=== PATIENT | male | born 1975 | race African-American/Black ===

== ENCOUNTER 2016-07-22 15:19 | Emergency (ER) | payer OTHER ==
--- NOTE | ~2016-07-22 | EKG ---
PATIENT: DIOGENES MICHAELS UNIT #: [id number] Ventricular Rate: 55 BPM Atrial Rate: 55 BPM P-R Interval: 136 ms QRS Duration: 92 ms Q-T Interval: 424 ms QTC Calculation(Bezet): 405 ms P [place]: -7 degrees Calculated R [place]: -4 degrees Calculated T [place]: 150 degrees Diagnosis Line: Sinus bradycardia Diagnosis Line: Minimal voltage criteria for LVH, may be normal Diagnosis Line: variant Diagnosis Line: T wave abnormality, consider lateral ischemia Diagnosis Line: Abnormal ECG Diagnosis Line: No previous ECGs available Diagnosis Line: Confirmed by ROB JASON MD ([id number]) on 07/23/2016 Diagnosis Line: 4:33:53 PM INTERPRETING MD: CASIE ADAMS
[~2016-07-22 15:19] MED LIST: NEXIUM PO
[2016-07-22 15:52] LABS: BILIRUBIN, DIRECT 0.2 mg/dL (0.0-0.2); BILIRUBIN,INDIRECT 0.8 mg/dL (0.0-0.9); BUN/CREATININE RATIO 10.9; CALCIUM SERUM 9.3 mg/dL (8.4-10.2); CREATININE SERUM 1.1 mg/dL (0.6-1.4); GLOM FILT RATE Estimated 95.5 mL/min (>60); POTASSIUM 4.3 mmol/L (3.5-5.1); PROTEIN TOTAL SERUM 7.5 g/dL (6.0-8.3)
[2016-07-22 15:59] LABS: BASOPHIL# 0.1 X10e3 (0-0.3); EOSINOPHIL# 0.1 X10e3 (0-0.7); EOSINOPHIL% 1.5 % (0.0-7.0); HEMATOCRIT 47.4 % (38.0-50.0); HEMOGLOBIN 15.1 gm/dL (13.0-16.0); LYMPHOCYTE# 2.4 X10e3 (1.0-3.5); LYMPHOCYTE% 30.2 % (17.0-45.0); MEAN CORPUSCULAR HEMOGLOBIN 28.6 PG (28-34); MEAN CORPUSCULAR HGB CONC 31.8 g/dL (30-36); MEAN PLATELET VOLUME 10.3 FL (6.5-11.5); MONOCYTE# 0.9 X10e3 (0-1.0); MONOCYTE% 11.6 % (3.0-12.0); NEUTROPHIL# 4.3 X10e3 (1.5-7.1); NEUTROPHIL% 55.7 % (40-75); RED BLOOD COUNT 5.27 X10e (3.90-5.60); RED CELL DISTRIBUTION WIDTH 13.1 % (11.0-15.5); WHITE BLOOD COUNT 7.8 X10e3 (4.0-10.5)
[2016-07-22 16:02] LABS: DIFF IND NO
[2016-07-22 16:05] LABS: PLATELET COUNT 138 X10e3 (140-420)
[2016-07-22 16:06] LABS: POC - CKMB 1.1 ng/mL (0.0-7.9); POC - TROPONIN <0.05 ng/mL (<=0.05)
[2016-07-22 16:13] LABS: URINE SOURCE CLEAN CATCH
[2016-07-22 16:21] LABS: URINE APPEARANCE CLEAR; URINE BILIRUBIN NEG (NEG); URINE BLOOD NEG (NEG); URINE COLOR YELLOW; URINE GLUCOSE NEG (NEG); URINE KETONE NEG (NEG); URINE LEUKOCYTE ESTERASE NEG (NEG); URINE NITRATE NEG (NEG); URINE PH 5.5 (5-8); URINE PROTEIN NEG (NEG); URINE SPECIFIC GRAVITY 1.025 (1.003-1.035)
[2016-07-22 16:33] LABS: CULTURE INDICATED? NO
== END 2016-07-22 17:27 | disposition home or self-care (01) ==
LOC: CED 15:19
PROVIDERS: Emergency Medicine
DX: R10.13 Epigastric pain (principal); I10 Essential (primary) hypertension; Z79.899 Other long term (current) drug therapy; Z87.891 Personal history of nicotine dependence
CPT/HCPCS: 36415; 80048; 80076; 81003; 82553; 84484; 85025; 93005; 96374; 99284; J0360

== ENCOUNTER 2016-07-25 23:16 | Emergency (ER) | payer OTHER ==
--- NOTE | ~2016-07-25 | EKG ---
PATIENT: DIOGENES MICHAELS UNIT #: [id number] Ventricular Rate: 84 BPM Atrial Rate: 84 BPM P-R Interval: 126 ms QRS Duration: 88 ms Q-T Interval: 372 ms QTC Calculation(Bezet): 439 ms P [place]: -6 degrees Calculated R [place]: -46 degrees Calculated T [place]: 126 degrees Diagnosis Line: Normal sinus rhythm with sinus arrhythmia Diagnosis Line: Left axis deviation Diagnosis Line: Left ventricular hypertrophy with repolarization Diagnosis Line: abnormality Diagnosis Line: Inferior infarct , new Diagnosis Line: Anterior infarct , possibly acute Diagnosis Line: ACUTE NH / STEMI Diagnosis Line: Abnormal ECG Diagnosis Line: When compared with ECG of 22-JUL-2016 15:22, Diagnosis Line: Vent. rate has increased BY 29 BPM Diagnosis Line: QRS axis Shifted left Diagnosis Line: Anterior infarct is now Present Diagnosis Line: Acute Inferior infarct is now Present Diagnosis Line: Confirmed by SHREYA DUBON MD ([id number]) on 07/27/2016 Diagnosis Line: 11:01:46 PM INTERPRETING MD: JAGDISH ADAMS
[2016-07-25 23:43] LABS: POC - CKMB 13.2 ng/mL (0.0-7.9); POC - TROPONIN 0.74 ng/mL (<=0.05)
[2016-07-26 00:11] LABS: BASOPHIL# 0.1 X10e3 (0-0.3); BASOPHIL% 0.7 % (0-2.5); EOSINOPHIL# 0.1 X10e3 (0-0.7); HEMATOCRIT 50.8 % (38.0-50.0); HEMOGLOBIN 16.3 gm/dL (13.0-16.0); LYMPHOCYTE# 3.8 X10e3 (1.0-3.5); LYMPHOCYTE% 38.5 % (17.0-45.0); MEAN CELL VOLUME 89.6 FL (83-96); MEAN CORPUSCULAR HEMOGLOBIN 28.8 PG (28-34); MEAN CORPUSCULAR HGB CONC 32.1 g/dL (30-36); MEAN PLATELET VOLUME 10.1 FL (6.5-11.5); MONOCYTE# 1.4 X10e3 (0-1.0); MONOCYTE% 14.5 % (3.0-12.0); NEUTROPHIL# 4.5 X10e3 (1.5-7.1); NEUTROPHIL% 45.3 % (40-75); PLATELET COUNT 158 X10e3 (140-420); RED BLOOD COUNT 5.68 X10e (3.90-5.60); RED CELL DISTRIBUTION WIDTH 12.9 % (11.0-15.5); WHITE BLOOD COUNT 9.9 X10e3 (4.0-10.5)
[2016-07-26 00:13] LABS: DIFF IND NO
[2016-07-26 00:24] LABS: PARTIAL THROMBOPLASTIN TIME 26.4 SECONDS (23.5-31.3); PROTHROMBIN TIME (PATIENT) 10.6 SECONDS (9.6-11.5)
[2016-07-26 00:27] LABS: BUN/CREATININE RATIO 13.63; CALCIUM SERUM 9.6 mg/dL (8.4-10.2); CREATININE SERUM 1.1 mg/dL (0.6-1.4); GLOM FILT RATE Estimated 95.5 mL/min (>60); POTASSIUM 3.5 mmol/L (3.5-5.1)
== END 2016-07-25 23:37 ==
LOC: CED 23:16
PROVIDERS: Student in an Organized Health Care Education/Training Program
DX: I21.09 ST elevation (STEMI) myocardial infarction involving other coronary artery of anterior wall (principal); I10 Essential (primary) hypertension; K21.9 Gastro-esophageal reflux disease without esophagitis; F17.210 Nicotine dependence, cigarettes, uncomplicated; Z79.899 Other long term (current) drug therapy
CPT/HCPCS: 36415; 80048; 82553; 83880; 84484; 85025; 85610; 85730; 93005; 99291; J1644